=== PATIENT | female | born 1985 | race Caucasian/White ===

== ENCOUNTER 2018-08-01 10:58 | Emergency (ER) | payer SELFPAY ==
[~2018-08-01] VITALS: Ht 158.8 cm; Wt 73.0 kg
[~2018-08-01 10:58] MED LIST: AMOXICILLIN500 MG OR; AMOXICILLIN875 MG PO; CIPROFLOXACN500 MG PO; GENOPTIC0.3 % OD; NO; ZYRTEC-D AL1 OR
[2018-08-01] MEDS ORDERED: MEDDOSEPAK PO (11:32)
[2018-08-01 11:35] VITALS: BP 117/75
== END 2018-08-01 11:37 | disposition home or self-care (01) | DRG 607 ==
LOC: ED 10:58
DX: L25.9 Unspecified contact dermatitis, unspecified cause (principal); R21 Rash and other nonspecific skin eruption

== ENCOUNTER 2020-09-28 12:13 | Emergency (ER) | payer SELFPAY ==
[~2020-09-28] VITALS: Ht 158.8 cm; Wt 77.4 kg
[~2020-09-28 12:13] MED LIST changes: +MEDDOSEPAK PO
[2020-09-28 13:47] LABS: URINE BILIRUBIN - DIPSTICK NEGATIVE (NEGATIVE); URINE BLOOD DIPSTICK LARGE (NEGATIVE); URINE COLOR YELLOW; URINE GLUCOSE - DIPSTICK NEGATIVE (NEGATIVE); URINE KETONE NEGATIVE (NEGATIVE); URINE PROTEIN - DIPSTICK 100 mg/dL (NEG-TRACE); URINE SPECIFIC GRAVITY 1.025; URINE UROBILINOGEN - DIPSTICK 0.2 E.U./dL (0.2)
[2020-09-28 13:50] LABS: URINE LEUK ESTERASE MODERATE (NEGATIVE); URINE NITRITE - DIPSTICK POSITIVE (Negative)
[2020-09-28 13:56] LABS: URINE SQUAMOUS EPITHELIAL CELL FEW EPI/hpf (0-FEW); URINE WBC 50-100 WBC/hpf (0-5)
[2020-09-28] MEDS ORDERED: KEFLEX500 MG PO (14:17)
[2020-09-28] MEDS ORDERED: PYRIDIUM200 MG PO (14:17)
[2020-09-28 14:20] VITALS: BP 113/78
== END 2020-09-28 14:20 | disposition home or self-care (01) | DRG 690 ==
LOC: ED 12:13
PROVIDERS: Emergency Medicine
DX: N39.0 Urinary tract infection, site not specified (principal); B96.20 Unspecified Escherichia coli [E. coli] as the cause of diseases classified elsewhere; F17.200 Nicotine dependence, unspecified, uncomplicated